=== PATIENT | female | born 1990 | race African-American/Black ===

== ENCOUNTER 2017-06-22 14:35 | Emergency (ER) | payer OTHER ==
[2017-06-22 15:06] VITALS: BMI 48.3
[2017-06-22] MEDS ORDERED: DEXTROSE 5%-LACTATED RINGERS 500 ML IV ONE ×2 (16:00→17:00)
[2017-06-22 18:46] LABS: URINE APPEARANCE CLEAR; URINE BILIRUBIN NEGATIVE (NEGATIVE); URINE BLOOD NEGATIVE (NEGATIVE); URINE COLOR DKYELLOW; URINE GLUCOSE (UA) 3+ (NEGATIVE); URINE KETONE 1+ (NEGATIVE); URINE NITRITE NEGATIVE (NEGATIVE); URINE PROTEIN NEGATIVE (NEGATIVE); URINE UROBILINOGEN NEGATIVE mg/dL (0.2-1.0)
[2017-06-22 18:54] LABS: URINE LEUK ESTERASE 1+ (NEGATIVE)
[2017-06-22] MEDS ORDERED: DEXTROSE 5%-LACTATED RINGERS 1,000 ML IV SCH (19:00)
[2017-06-22 19:03] LABS: EPI CELLS RARE /HPF (FEW); URINE BACTERIA RARE /hpf (NONE SEEN); URINE MUCUS RARE
[2017-06-22 19:17] LABS: COCAINE, UR NEGATIVE ng/ml (CUTOFF=300); METHADONE, UR NEGATIVE ng/ml (CUTOFF=300); OPIATES, URI NEGATIVE ng/ml (CUTOFF=300); PHENCYCLIDINE,URINE NEGATIVE ng/ml (CUTOFF=25); URINE AMPHETAMINES NEGATIVE ng/ml (CUTOFF=500); URINE BARBITURATES NEGATIVE ng/ml (CUTOFF=200); URINE BENZODIAZEPINES NEGATIVE ng/ml (CUTOFF=200)
[2017-06-22 21:43] LABS: BASO % 0.4 % (0-2.0); EOS % 0.5 % (0-4.5); HEMATOCRIT 37.9 % (32.4-45.2); HEMOGLOBIN 12.7 GM/dL (10.7-15.3); LYMPH % 14.7 % (8-40); MCH 30.4 pg (25.7-33.7); MCHC 33.5 g/dl (32.0-36.0); MEAN CELL VOLUME 90.9 fl (80-96); MEAN PLT VOLUME 9.7 fl (7.5-11.1); MONO % 9.9 % (3.8-10.2); NEUT % 74.5 % (42.8-82.8); PLATELET COUNT 215 K/MM3 (134-434); RBC 4.17 M/mm3 (3.60-5.2); RDW 13.6 % (11.6-15.6)
[2017-06-22 22:53] LABS: ALBUMIN 2.6 g/dl (3.4-5.0); ALK PHOS 118 U/L (45-117); ANION GAP 10 (8-16); BILIRUBIN,TOTAL 0.6 mg/dL (0.2-1.0); BLOOD UREA NITROGEN 5 mg/dL (7-18); CALCIUM 8.5 mg/dL (8.5-10.1); CHLORIDE 104 mmol/L (98-107); CO2 22 mmol/L (21-32); CREATININE 0.5 mg/dL (0.55-1.02); GLUCOSE,RANDOM 119 mg/dL (74-106); POTASSIUM 3.8 mmol/L (3.5-5.1); SGPT/ALT 47 U/L (12-78); SODIUM 136 mmol/L (136-145); TOT PROT 6.3 g/dl (6.4-8.2)
[2017-06-22 22:55] LABS: SGOT/AST 32 U/L (15-37)
[2017-06-22 23:22] VITALS: BP 118/74; PULSE 109; TEMP 98.6
== END 2017-06-22 23:20 | disposition home or self-care (01) ==
LOC: JER 14:35
DX: O26.893 Other specified pregnancy related conditions, third trimester (principal); R50.9 Fever, unspecified; R19.7 Diarrhea, unspecified; Z3A.35 35 weeks gestation of pregnancy
CPT/HCPCS: 36415; 76815; 76830-TC; 80053; 80307; 81003; 81015; 85025; 87086; 99282-25

== ENCOUNTER 2017-07-25 19:25 | Inpatient (IN) | payer OTHER ==
[2017-07-25 20:38] VITALS: BMI 48.2
[2017-07-25 21:04] LABS: BASO % 0.4 % (0-2.0); EOS % 1.7 % (0-4.5); HEMATOCRIT 36.3 % (32.4-45.2); HEMOGLOBIN 12.5 GM/dL (10.7-15.3); LYMPH % 27.7 % (8-40); MCH 31.6 pg (25.7-33.7); MCHC 34.4 g/dl (32.0-36.0); MEAN CELL VOLUME 91.8 fl (80-96); MEAN PLT VOLUME 10.2 fl (7.5-11.1); MONO % 10.6 % (3.8-10.2); NEUT % 59.6 % (42.8-82.8); PLATELET COUNT 246 K/MM3 (134-434); RBC 3.96 M/mm3 (3.60-5.2); RDW 14.2 % (11.6-15.6); WHITE BLOOD COUNT 8.2 K/mm3 (4.0-10.0)
--- NOTE | 2017-07-25 21:04 | PN ---
Progress Note (short form) - Note Progress Note: Patient seen and examined at bedside. Patient is comfortable without pain. BP: 122/72 HR: 90 T:99 SVE: 1 / long / high / medium / midposition; Julien score 3 FHT: 155 mod variability; + accels, no decels TOCO: No Ctx 27 yo @ 40 2/7 wks, IOL noncompliant GDM Reviewed risks / benefits of induction of labor including heart rate changes, uterine tachysystole, need for emergent delivery. Patient expressed understanding and gives verbal consent for induction. Cervidil placed in posterior fornix at 2054.
[2017-07-25 21:06] LABS: URINE APPEARANCE CLEAR; URINE BILIRUBIN NEGATIVE (NEGATIVE); URINE BLOOD NEGATIVE (NEGATIVE); URINE COLOR LTYELLOW; URINE GLUCOSE (UA) 3+ (NEGATIVE); URINE KETONE NEGATIVE (NEGATIVE); URINE NITRITE NEGATIVE (NEGATIVE); URINE PROTEIN NEGATIVE (NEGATIVE); URINE UROBILINOGEN NEGATIVE mg/dL (0.2-1.0)
[2017-07-25 21:07] LABS: URINE LEUK ESTERASE 3+ (NEGATIVE)
[2017-07-25 21:08] LABS: EPI CELLS RARE /HPF (FEW)
[2017-07-25 21:15] LABS: URINE AMPHETAMINES NEGATIVE ng/ml (CUTOFF=500); URINE BARBITURATES NEGATIVE ng/ml (CUTOFF=200); URINE BENZODIAZEPINES NEGATIVE ng/ml (CUTOFF=200)
[2017-07-25] MEDS ORDERED: PROMETHAZINE HCL 25 MG/1 ML VIAL IVPB ONE (21:15)
[2017-07-25] MEDS ORDERED: BUTORPHANOL TARTRATE 1 MG/ML VIAL IVPUSH ONE (21:15)
[2017-07-25] MEDS ORDERED: DINOPROSTONE 10 MG VAGINAL SUPPOSITORY VG ONE (21:15)
[2017-07-25] MEDS ORDERED: ELECTROLYTE-148 SOLN 1,000 ML IV SCH (21:15)
[2017-07-25 21:16] LABS: COCAINE, UR NEGATIVE ng/ml (CUTOFF=300); METHADONE, UR NEGATIVE ng/ml (CUTOFF=300); OPIATES, URI NEGATIVE ng/ml (CUTOFF=300); PHENCYCLIDINE,URINE NEGATIVE ng/ml (CUTOFF=25)
[2017-07-25 21:21] LABS: INR 0.87 (0.82-1.09); PROTHROMBIN TIME (PATIENT) 9.8 SEC (9.98-11.88)
[2017-07-25 21:24] LABS: ACTIVATED PTT 28.2 SECONDS (26.9-34.4)
[2017-07-25 21:45] LABS: ANION GAP 10 (8-16); BLOOD UREA NITROGEN 7 mg/dL (7-18); CALCIUM 8.6 mg/dL (8.5-10.1); CHLORIDE 106 mmol/L (98-107); CO2 21 mmol/L (21-32); CREATININE 0.6 mg/dL (0.55-1.02); GLUCOSE,RANDOM 94 mg/dL (74-106); POTASSIUM 4.2 mmol/L (3.5-5.1); SODIUM 137 mmol/L (136-145)
--- NOTE | 2017-07-25 22:22 | HP ---
Past Medical History - Primary Care Physician PCP:: Miguel Cid - Admission Chief Complaint: pregnanacy 40.2 weeks. GDM, obesity , limitted visits History of Present Illness: 27 yo f 40.2 weeks with hx of GDM ,obesity ,and limitted visit, transferred care from [place] admitted for cervidil induction, aware of all risks.cx closed, vx -3 mi , fhr cat 1 , no contraction, GDM ,diet controlled History Source: Patient Limitations to Obtaining History: No Limitations - Past Medical History Pulmonary: Yes: Asthma ...: 2 ...Para: 0 ...Term: 0 ...: 0 ...Spon : 0 ...Induced : 1 ...Multiple Gestation: 0 ...LMP: 10/16/16 ... Weeks Gestation by Dates: 40.2 ...EDC by Dates: 07/23/17 ...EDC by Sono: 07/23/17 - Past Surgical History Hx Myomectomy: No Hx Transabdominal Cerclage: No - Smoking History Smoking history: Never smoked Have you smoked in the past 12 months: No - Alcohol/Substance Use Hx Alcohol Use: No - Social History History of Recent Travel: Yes ([place]) Home Medications - Allergies Allergies/Adverse Reactions: Allergies Allergy/AdvReac Type Severity Reaction Status Date / Time shellfish derived Allergy Severe Swelling Verified 07/25/17 19:57 green peas AdvReac Intermediate Itching Uncoded 07/25/17 19:57 - Home Medications Home Medications: Ambulatory Orders Albuterol Sulfate Inhaler - 3 puff PO PRN PRN 07/25/17 Tablet 1 tablet PO DAILY 07/25/17 Review of Systems - Review of Systems Constitutional: reports: No Symptoms Eyes: reports: No Symptoms HENT: reports: No Symptoms Neck: reports: No Symptoms Cardiovascular: reports: No Symptoms Respiratory: reports: No Symptoms Gastrointestinal: reports: No Symptoms Genitourinary: reports: No Symptoms Breasts: reports: No Symptoms Reported Musculoskeletal: reports: No Symptoms Integumentary: reports: No Symptoms Neurological: reports: No Symptoms Endocrine: reports: No Symptoms Hematology/Lymphatic: reports: No Symptoms Psychiatric: reports: No Symptoms Physical Exam - Maternity Vital Signs: Vital Signs Temperature 99.0 F 07/25/17 19:25 Pulse Rate 90 07/25/17 19:25 Respiratory Rate 20 07/25/17 19:25 Blood Pressure 122/72 07/25/17 19:25 O2 Sat by Pulse Oximetry (%) Constitutional: Yes: Obese Eyes: Yes: WNL HENT: Yes: WNL Neck: Yes: WNL Cardiovascular: Yes: WNL Breast(s): Yes: WNL - Abdominal Exam/OB Fundal Height: 40 Number of Fetuses: Single Presentation: Vertex Contractions: No Monitor Mode: External Heart Rate Location: [facility] Category: I Accelerations: Uniform Decelerations: None - Vaginal Exam/OB Vaginal Bleediing: No Speculum Exam: No Dilatation (cm): closed Effacement (%): 0 Amniotic Membrane Status: Intact Presentation: Vertex/Position Station: -3 - Physical Exam Musculoskeletal: Yes: Back Pain Edema: Yes Edema: LLE: Trace, RLE: Trace Deep Tendon Reflex Grade: Normal +2 ...Motor Strength: WNL Psychiatric: Yes: WNL - Labs Lab Results: CBC, BMP 07/25/17 20:25 07/25/17 20:25 Hemorrhage Risk Assessment - Risk Factors Medium Risk Factors: Yes: Obesity (BMI >40) Risk Score: 1 Risk Level: Medium Risk Problem List - Problems (1) Post term over 40 weeks Code(s): O48.0 - POST-TERM (2) GDM (gestational diabetes mellitus) Code(s): O24.419 - GESTATIONAL DIABETES MELLITUS IN , UNSP CONTROL Qualifiers: Gestational diabetes mellitus control: diet-controlled (3) Obesity affecting Code(s): O99.210 - OBESITY COMPLICATING , UNSPECIFIED TRIMESTER Qualifiers: Trimester: third trimester Qualified Code(s): O99.213 - Obesity complicating , third trimester (4) Limited care Code(s): O09.30 - SUPRVSN OF PREG W INSUFFICIENT ANTENAT CARE, UNSP TRIMESTER Qualifiers: Trimester: third trimester Qualified Code(s): O09.33 - Supervision of with insufficient care, third trimester Assessment/Plan plan admit for cervidil induction, risks explained , agreed bgm monitor heart
[2017-07-26] MEDS ORDERED: AMPICILLIN - 2 GM in SODIUM CHLORIDE 100 ML IVPB ONE (04:00)
[2017-07-26] MEDS ORDERED: AMPICILLIN SODIUM 2 GM VIAL ONE (04:31)
[2017-07-26] MEDS ORDERED: PROMETHAZINE HCL 25 MG/1 ML VIAL ONE (06:09)
[2017-07-26] MEDS ORDERED: BUTORPHANOL TARTRATE 1 MG/ML VIAL ONE ×2 (06:09)
[2017-07-26] MEDS ORDERED: AMPICILLIN SODIUM 1 GM VIAL ONE ×3 (07:56→16:23)
[2017-07-26] MEDS: AMPICILLIN - 1 GM in SODIUM CHLORIDE 100 ML IVPB SCH ×3 (08:00→16:15)
--- NOTE | 2017-07-26 08:12 | PN ---
Progress Note (short form) - Note Progress Note: cx 4 cm 80 vx -2 , arom , clear fluid , scalp electode applied . fhr cat 2, acceleration with scalp stimulation with internal monitor. wants epidural , will monitor heart with internal leads ,revaluate Problem List - Problems (1) Post term over 40 weeks Code(s): O48.0 - POST-TERM (2) GDM (gestational diabetes mellitus) Code(s): O24.419 - GESTATIONAL DIABETES MELLITUS IN , UNSP CONTROL Qualifiers: Gestational diabetes mellitus control: diet-controlled (3) Obesity affecting Code(s): O99.210 - OBESITY COMPLICATING , UNSPECIFIED TRIMESTER Qualifiers: Trimester: third trimester Qualified Code(s): O99.213 - Obesity complicating , third trimester (4) Limited care Code(s): O09.30 - SUPRVSN OF PREG W INSUFFICIENT ANTENAT CARE, UNSP TRIMESTER Qualifiers: Trimester: third trimester Qualified Code(s): O09.33 - Supervision of with insufficient care, third trimester
[2017-07-26] MEDS ORDERED: FENTANYL/BUPIVACAINE/NS/PF - PCEA - 50 ML DISP.SYRIN EP ONE ×2 (08:21→12:57)
[2017-07-26] MEDS ORDERED: NALOXONE HCL 0.4 MG/ML VIAL IVPUSH PRN (08:52)
[2017-07-26] MEDS ORDERED: FENTANYL/BUPIVACAINE/NS/PF - PCEA - 50 ML DISP.SYRIN EP SCH (09:00)
[2017-07-26] MEDS ORDERED: OXYTOCIN 30 UNITS in 0.9% NS 30 UNIT/500 ML INFUS.BAG IVPB ONE (11:03)
[2017-07-26] MEDS ORDERED: OXYTOCIN 30 UNITS in 0.9% NS 30 UNIT/500 ML INFUS.BAG IVPB SCH (11:30)
[2017-07-26] MEDS ORDERED: OXYTOCIN 20 UNITS in 0.9% NS 20 UNIT/1,000 ML INFUS.BAG IV ONE (14:59)
[2017-07-26] MEDS ORDERED: BENZOCAINE 20% 57 GM BOTTLE TP PRN (16:52)
[2017-07-26] MEDS ORDERED: WITCH HAZEL 50% (TUCKS) 40 PAD/JAR PAD TP PRN (16:52)
[2017-07-26] MEDS ORDERED: BISACODYL 10 MG SUPP.RECT RC PRN (16:52)
[2017-07-26] MEDS ORDERED: METHYLERGONOVINE MALEATE 0.2 MG/1 ML AMP IM PRN (16:52)
[2017-07-26] MEDS ORDERED: BENZOCAINE 28 GM HEMORRHOIDAL OINTMENT TP PRN (16:52)
--- NOTE | 2017-07-26 16:52 | PN ---
Progress Note (short form) - Note Progress Note: cx full 100 vx 2+ , fhr cat 2 with mild variable Problem List - Problems (1) Post term over 40 weeks Code(s): O48.0 - POST-TERM (2) GDM (gestational diabetes mellitus) Code(s): O24.419 - GESTATIONAL DIABETES MELLITUS IN , UNSP CONTROL Qualifiers: Gestational diabetes mellitus control: diet-controlled (3) Obesity affecting Code(s): O99.210 - OBESITY COMPLICATING , UNSPECIFIED TRIMESTER Qualifiers: Trimester: third trimester Qualified Code(s): O99.213 - Obesity complicating , third trimester (4) Limited care Code(s): O09.30 - SUPRVSN OF PREG W INSUFFICIENT ANTENAT CARE, UNSP TRIMESTER Qualifiers: Trimester: third trimester Qualified Code(s): O09.33 - Supervision of with insufficient care, third trimester
[2017-07-26] MEDS ORDERED: LIDOCAINE HCL 1% PRESERVATIVE FREE - 30ML VIAL ONE (16:54)
[2017-07-26] MEDS ORDERED: OXYTOCIN 20 UNITS in 0.9% NS 20 UNIT/1,000 ML INFUS.BAG IV SCH (17:00)
[2017-07-26 17:40] LABS: VENOUS PC02 62.5 mmHg (38-52); VENOUS PH 7.19 (7.32-7.42); VENOUS PO2 20.5 mmHg (28-48)
[2017-07-26 17:41] LABS: ARTERIAL BLOOD GAS pH 7.12 (7.35-7.45)
[2017-07-26 17:42] LABS: ARTERIAL BLD GAS O2 SATURATION 5.9 % (90-98.9); ARTERIAL BLOOD GAS BASE EXCESS -8.3 meq/l (-2-2); ARTERIAL BLOOD GAS PCO2 79.2 mmHg (35-45); ARTERIAL BLOOD GAS PO2 10.7 mmHg (80-100)
[2017-07-26] MEDS ORDERED: ACETAMINOPHEN 1000 MG/100 ML VIAL (NON FORMULARY) IVPB ONE (18:15)
[2017-07-26] MEDS: FERROUS SO4 325 MG TABLET (FP) PO SCH (18:41)
[2017-07-26] MEDS: IBUPROFEN 600 MG TABLET (FP) PO PRN (20:30)
[2017-07-26] MEDS: ACETAMINOPHEN 325 MG TABLET (FP) PO PRN (20:30)
[2017-07-26] MEDS ORDERED: IBUPROFEN 600 MG TABLET (FP) PO ONE (20:31)
[2017-07-26] MEDS ORDERED: ACETAMINOPHEN 325 MG TABLET (FP) ONE (20:31)
[2017-07-27] MEDS: IBUPROFEN 600 MG TABLET (FP) PO PRN ×4 (03:36→21:24)
[2017-07-27] MEDS: ACETAMINOPHEN 325 MG TABLET (FP) PO PRN ×4 (03:37→21:24)
[2017-07-27 08:17] LABS: BASO % 0.3 % (0-2.0); EOS % 0.3 % (0-4.5); HEMATOCRIT 30.5 % (32.4-45.2); HEMOGLOBIN 10.4 GM/dL (10.7-15.3); LYMPH % 14.3 % (8-40); MCH 31.3 pg (25.7-33.7); MEAN PLT VOLUME 9.6 fl (7.5-11.1); MONO % 8.4 % (3.8-10.2); NEUT % 76.7 % (42.8-82.8); PLATELET COUNT 217 K/MM3 (134-434); RBC 3.32 M/mm3 (3.60-5.2); RDW 14.6 % (11.6-15.6); WHITE BLOOD COUNT 19.1 K/mm3 (4.0-10.0)
[2017-07-27] MEDS: PRENATAL VITAMINS W/ FOLIC ACID TABLET (FP) PO SCH (09:13)
[2017-07-27] MEDS: FERROUS SO4 325 MG TABLET (FP) PO SCH ×2 (09:14→17:12)
[2017-07-27] MEDS ORDERED: DIPHTH,PERTUSS(ACELL),TET 0.5 ML DISP.SYRIN IM ONE (10:00)
[2017-07-27] MEDS ORDERED: FLU VACC QS2017-18 36MOS UP/PF 60 MCG/0.5 ML SYRINGE IM ONE (10:00)
--- NOTE | 2017-07-27 12:51 | PN ---
Progress Note (short form) - Note Progress Note: ppd 1 GDM s/p no c/o no excess vaginal bleeding CBC, BMP 07/27/17 07:20 07/25/17 20:25 Last Vital Signs Temp Pulse Resp BP Pulse Ox 98.7 F 95 H 20 121/67 100 07/27/17 10:08 07/27/17 10:08 07/27/17 10:08 07/27/17 10:08 07/26/17 18:34 abdomen soft, no cva , uterus firm ,non tender no calf tenderness lochia mild plan BGM ambulate pain management Problem List - Problems (1) Post term over 40 weeks Code(s): O48.0 - POST-TERM (2) GDM (gestational diabetes mellitus) Code(s): O24.419 - GESTATIONAL DIABETES MELLITUS IN , UNSP CONTROL Qualifiers: Gestational diabetes mellitus control: diet-controlled (3) Obesity affecting Code(s): O99.210 - OBESITY COMPLICATING , UNSPECIFIED TRIMESTER Qualifiers: Trimester: third trimester Qualified Code(s): O99.213 - Obesity complicating , third trimester (4) Limited care Code(s): O09.30 - SUPRVSN OF PREG W INSUFFICIENT ANTENAT CARE, UNSP TRIMESTER Qualifiers: Trimester: third trimester Qualified Code(s): O09.33 - Supervision of with insufficient care, third trimester
[2017-07-27] MEDS ORDERED: SENNOSIDES/DOCUSATE COMBO (SENNA PLUS) TABLET (UD) PO PRN (22:00)
[2017-07-28] MEDS: IBUPROFEN 600 MG TABLET (FP) PO PRN ×3 (03:42→13:48)
[2017-07-28] MEDS: ACETAMINOPHEN 325 MG TABLET (FP) PO PRN ×3 (03:43→13:49)
[2017-07-28] MEDS: FERROUS SO4 325 MG TABLET (FP) PO SCH ×2 (08:18→17:51)
[2017-07-28] MEDS: PRENATAL VITAMINS W/ FOLIC ACID TABLET (FP) PO SCH (09:25)
--- NOTE | 2017-07-28 09:51 | PN ---
Post Progress Note Post Day: 2 Type of Delivery: Vital Signs: Vital Signs Temperature 98.1 F 07/27/17 21:00 Pulse Rate 91 H 07/27/17 21:00 Respiratory Rate 20 07/27/17 21:00 Blood Pressure 120/54 07/27/17 21:00 O2 Sat by Pulse Oximetry (%) 100 07/26/17 18:34 Breast Exam: Yes: Soft Uterus: Yes: Fundus Firm Abdomen/GI: Yes: Abdomen soft Lochia: Yes: Rubra Lochia, amount: Small Extremities: Yes: Calves non-tender Perineum: Yes: Intact Activity: Ambulating - Labs Labs: CBC WBC 19.1 K/mm3 (4.0-10.0) H D 07/27/17 07:20 RBC 3.32 M/mm3 (3.60-5.2) L 07/27/17 07:20 Hgb 10.4 GM/dL (10.7-15.3) L D 07/27/17 07:20 Hct 30.5 % (32.4-45.2) L D 07/27/17 07:20 MCV 92.0 fl (80-96) 07/27/17 07:20 MCH 31.3 pg (25.7-33.7) 07/27/17 07:20 MCHC 34.0 g/dl (32.0-36.0) 07/27/17 07:20 RDW 14.6 % (11.6-15.6) 07/27/17 07:20 Plt Count 217 K/MM3 (134-434) 07/27/17 07:20 MPV 9.6 fl (7.5-11.1) 07/27/17 07:20 Neutrophils % 76.7 % (42.8-82.8) D 07/27/17 07:20 Lymphocytes % 14.3 % (8-40) D 07/27/17 07:20 Monocytes % 8.4 % (3.8-10.2) 07/27/17 07:20 Eosinophils % 0.3 % (0-4.5) D 07/27/17 07:20 Basophils % 0.3 % (0-2.0) 07/27/17 07:20 Assessment/Plan oob dc home today
[2017-07-28 11:22] VITALS: BP 111/60; PULSE 87; TEMP 99.4
--- NOTE | 2017-07-30 20:08 | DS ---
Physical Exam-PROPERTY MAINTENANCE TECHNICIAN Vital Signs: Vital Signs Temperature 99.4 F 07/28/17 07:20 Pulse Rate 87 07/28/17 07:20 Respiratory Rate 20 07/28/17 07:20 Blood Pressure 111/60 07/28/17 07:20 O2 Sat by Pulse Oximetry (%) 100 07/26/17 18:34 Constitutional: Yes: Well Nourished, No Distress, Calm Eyes: Yes: WNL, Conjunctiva Clear, EOM Intact HENT: Yes: WNL, Atraumatic, Normocephalic Neck: Yes: WNL, Supple, Trachea Midline Cardiovascular: Yes: WNL, Regular Rate and Rhythm Respiratory: Yes: WNL, Regular, CTA Bilaterally Gastrointestinal: Yes: WNL ...Rectal Exam: Yes: WNL Renal/: Yes: WNL External Genitalia: Yes: Normal ....Post : Yes: Uterus firm, Uterus non-tender, Slight lochia rubra Breast(s): Yes: WNL Musculoskeletal: Yes: WNL Extremities: Yes: WNL Edema: No Integumentary: Yes: WNL Neurological: Yes: WNL, Alert, Oriented ...Motor Strength: WNL Psychiatric: Yes: WNL, Alert, Oriented Labs: CBC, BMP 07/27/17 07:20 07/25/17 20:25 Delivery - Delivery Vaginal Delivery: Spontaneous (cx full headdelivered nasopharynx suctoned , ant and post .shoulder with no difficultuy , live baby , no compliction, placenta spontaneous , complelet, first degree repair with 2 0 chromiic , 300 cc blood loss) Type of Anesthesia: Epidural Episiotomy/Laceration: 1st degree EBL (cc): 300 Delivery, Single - Stages of Labor Date 1st Stage Initiatied: 07/26/17 Time 1st Stage Initiated: 06:00 Date 2nd Stage Initiated: 07/26/17 Time 2nd Stage Initiated: 16:52 Date of Delivery: 07/26/17 Time of Delivery: 17:06 Time Placenta Delivered: 17:10 Placenta: Yes: Spontaneous - Condition of Infant Special Education Para Professional/Mortgage Underwriter Present: Yes Name: Thai Mcfarland Gender: Male Weight: 9 lb 5 oz Position: Left, OA Total Hours ROM (Hrs/Mins): 9hours 10minutes - 1 Minute Total Score: 5 5 Minutes Total Score: 8 - Feeding Plan Initial Plan: Elected not to breastfeed exclusively throughout hospitalization Discharge Summary Reason For Visit: INDUCTION OF LABOR GDM, obesity Procedures: Principal: cervidil induction, s/p Condition: Good - Instructions Diet, Activity, Other Instructions: Call [facility] and make appt. to be seen in 4 to 6 weeks. If heavy bleeding, fever, or pain call [facility] [phone] Referrals: Miguel Cid MD [Staff Physician] - Disposition: HOME - Home Medications Comprehensive Discharge Medication List: Ambulatory Orders Albuterol Sulfate Inhaler - 3 puff PO PRN PRN 07/25/17 Tablet 1 tablet PO DAILY 07/25/17
== END 2017-07-28 18:00 | disposition home or self-care (01) | DRG 560 ==
LOC: JLDR 19:25 → J3W 07-26 21:31
PROVIDERS: ADMIT Obstetrics & Gynecology; ATTEND Obstetrics & Gynecology
PROC: 10E0XZZ Delivery of Products of Conception, External Approach (ICD-10-PCS; 2017-07-25)
PROC: 3E0P7VZ Introduction of Hormone into Female Reproductive, Via Natural or Artificial Opening (ICD-10-PCS; principal; 2017-07-26)
DX: O48.0 Post-term pregnancy (principal); O24.420 Gestational diabetes mellitus in childbirth, diet controlled; O99.214 Obesity complicating childbirth; E66.01 Morbid (severe) obesity due to excess calories; Z68.42 Body mass index [BMI] 45.0-49.9, adult; Z37.0 Single live birth; Z3A.40 40 weeks gestation of pregnancy
CPT/HCPCS: 36415; 36600; 59409; 80048; 80307; 81003; 81015; 82803; 82962; 85025; 85610; 85730; 86593; 86850; 86900; 86901; 90686; 90715